=== PATIENT | male | born 1985 | race Caucasian/White ===

== ENCOUNTER 2021-11-22 10:16 | Emergency (ER) | payer BC ==
[2021-11-22 10:48] VITALS: BP 102/67; PULSE 69; TEMP 97.8; BMI 35.5
[2021-11-22] MEDS ORDERED: KETOROLAC TROMETHAMINE 30 MG/1 ML VIAL IM ONE (10:55)
== END 2021-11-22 11:09 | disposition home or self-care (01) ==
LOC: JERFT 10:16
PROC: 3E0233Z Introduction of Anti-inflammatory into Muscle, Percutaneous Approach (ICD-10-PCS; principal; 2021-11-22)
DX: M54.50 Low back pain, unspecified (principal)
CPT/HCPCS: 99284-25

== ENCOUNTER 2021-11-30 12:23 | Emergency (ER) | payer BC ==
[2021-11-30 12:34] VITALS: BMI 35.5
[2021-11-30] MEDS ORDERED: LIDOCAINE 5% TOPICAL PATCH TP ONE (14:15)
[2021-11-30] MEDS ORDERED: KETOROLAC TROMETHAMINE 30 MG/1 ML VIAL IM ONE (14:15)
[2021-11-30] MEDS ORDERED: diazePAM 5 MG TABLET PO ONE (14:15)
[2021-11-30] MEDS ORDERED: diazePAM 5 MG TABLET ONE (14:31)
[2021-11-30] MEDS ORDERED: KETOROLAC TROMETHAMINE 30 MG/1 ML VIAL ONE ×2 (14:31)
[2021-11-30] MEDS ORDERED: LIDOCAINE 5% TOPICAL PATCH ONE (14:31)
[2021-11-30 14:51] LABS: PH,URINE 6.5 (5.0-8.0); URINE APPEARANCE CLEAR; URINE BILIRUBIN NEGATIVE (NEGATIVE); URINE COLOR YELLOW; URINE GLUCOSE (UA) NEGATIVE (NEGATIVE); URINE KETONE NEGATIVE (NEGATIVE); URINE LEUK ESTERASE NEGATIVE (NEGATIVE); URINE NITRITE NEGATIVE (NEGATIVE); URINE PROTEIN NEGATIVE (NEGATIVE); URINE UROBILINOGEN 0.2 mg/dL (0.2-1.0)
[2021-11-30 16:51] VITALS: BP 115/79; PULSE 75; TEMP 97.9
[2021-11-30] MEDS ORDERED: LIDOCAINE PATCH REMOVAL MC ONE (22:00)
== END 2021-11-30 18:13 | disposition home or self-care (01) ==
LOC: JER 12:23 → JERFT 12:23 → JER 18:13
PROC: 3E0233Z Introduction of Anti-inflammatory into Muscle, Percutaneous Approach (ICD-10-PCS; principal; 2021-11-30)
DX: M54.16 Radiculopathy, lumbar region (principal)
CPT/HCPCS: 72100-TC-FY; 81003; 87086; 99284-25